=== PATIENT | female | born 1950 ===

== ENCOUNTER 2017-06-23 08:21 | Day surgery (SDC) | payer MEDICARE ==
[2017-06-23 08:36] VITALS: BMI 32.5
[2017-06-23] MEDS ORDERED: Lactated Ringer's 500 ML IV ONE (08:43)
[2017-06-23] MEDS ORDERED: Propofol 10 mg/ml Inj (20 ML) ONE (10:24)
[2017-06-23] MEDS ORDERED: Midazolam 2 MG/2 ML VIAL ONE (10:24)
[2017-06-23 11:19] VITALS: O2SAT 98
[2017-06-23 11:24] VITALS: BP 112/67; PULSE 61; RESP 15; TEMP 97.2
== END 2017-06-23 12:40 | disposition home or self-care (01) ==
LOC: H.ENDO 08:21
PROVIDERS: ATTEND Internal Medicine Gastroenterology
DX: Z12.11 Encounter for screening for malignant neoplasm of colon (principal); E11.9 Type 2 diabetes mellitus without complications; I10 Essential (primary) hypertension; E78.5 Hyperlipidemia, unspecified; K64.8 Other hemorrhoids; K57.30 Diverticulosis of large intestine without perforation or abscess without bleeding
CPT/HCPCS: 45378; 82948; J2250; J2704; J7120